=== PATIENT | female | born 1960 | race Caucasian/White ===

== ENCOUNTER 2018-06-14 20:30 | Emergency (ER) | payer OTHER ==
[~2018-06-14] VITALS: Ht 157.5 cm; Wt 81.6 kg
[2018-06-15] MEDS ORDERED: NIFEDIPINE ER30 MG PO (03:43)
== END 2018-06-15 04:00 | disposition home or self-care (01) ==
LOC: ER 20:30
DX: I16.0 Hypertensive urgency (principal); I10 Essential (primary) hypertension

== ENCOUNTER 2021-03-31 14:42 | Inpatient (IN) | payer OTHER ==
[~2021-03-31] VITALS: Ht 157.5 cm; Wt 72.6 kg
[~2021-03-31 14:42] MED LIST: NIFEDIPINE ER30 MG PO
[2021-03-31] MEDS ORDERED: AVAPRO300 MG (14:54)
[2021-03-31] MEDS ORDERED: ALDACTONE25 MG PO (14:54)
[2021-03-31] MEDS ORDERED: ECOTRIN81 MG (14:55)
[2021-03-31] MEDS ORDERED: APRESOLINE 10MG10 MG (14:55)
[2021-03-31] MEDS ORDERED: AMLODIPINE-OLM1 EAC2 (14:55)
[2021-03-31] MEDS ORDERED: CARVEDILOL ER40 MG (14:55)
--- NOTE | 2021-03-31 14:56 | NUR ---
PACIENTE FEMENINA, ALERTA Y ORIENTADA. REFIERE MALESTAR GENERAL DESDE HACE NEY SEMANA. SE MIDE S/V. SE UBICA EN SLA DE ESPERA.
--- NOTE | 2021-03-31 17:16 | NUR ---
SE ORIENTA AL PACIENTE SOBRE EL TX. SE EXTRAEN MUESTRAS DE JOEL BAJO MEDIDAS ASEPTICAS SE ROTULAN Y ENVIAN AL LABORATORIO.
[2021-04-14] MEDS ORDERED: LOSARTAN POTAS100 MG PO (15:07)
[2021-04-14] MEDS ORDERED: HYDRALAZINE HCL50 MG PO (15:08)
[2021-04-14] MEDS ORDERED: ZOCOR20 MG PO (15:10)
== END 2021-04-14 16:49 | disposition home or self-care (01) | DRG 673 ==
LOC: ER 14:42 → MEDI 23:48
PROVIDERS: Radiology Vascular & Interventional Radiology; ADMIT Internal Medicine; ATTEND Internal Medicine
PROC: 06HM33Z Insertion of Infusion Device into Right Femoral Vein, Percutaneous Approach (ICD-10-PCS; 2021-04-01)
PROC: 30233N1 Transfusion of Nonautologous Red Blood Cells into Peripheral Vein, Percutaneous Approach (ICD-10-PCS; 2021-04-02)
PROC: 5A1D70Z Performance of Urinary Filtration, Intermittent, Less than 6 Hours Per Day (ICD-10-PCS; 2021-04-04)
PROC: 02H633Z Insertion of Infusion Device into Right Atrium, Percutaneous Approach (ICD-10-PCS; 2021-04-07)
PROC: 4A033R1 Measurement of Arterial Saturation, Peripheral, Percutaneous Approach (ICD-10-PCS; 2021-04-07)
PROC: 0JH63XZ Insertion of Tunneled Vascular Access Device into Chest Subcutaneous Tissue and Fascia, Percutaneous Approach (ICD-10-PCS; principal; 2021-04-07 17:00)
DX: I13.11 Hypertensive heart and chronic kidney disease without heart failure, with stage 5 chronic kidney disease, or end stage renal disease (principal); N18.6 End stage renal disease; E87.2 Acidosis; T82.41XA Breakdown (mechanical) of vascular dialysis catheter, initial encounter; N17.8 Other acute kidney failure; E87.5 Hyperkalemia; D64.9 Anemia, unspecified; Z20.822 Contact with and (suspected) exposure to COVID-19; D69.6 Thrombocytopenia, unspecified; E53.8 Deficiency of other specified B group vitamins; Z99.2 Dependence on renal dialysis; Y84.1 Kidney dialysis as the cause of abnormal reaction of the patient, or of later complication, without mention of misadventure at the time of the procedure

== ENCOUNTER 2021-09-09 19:51 | Emergency (ER) | payer OTHER ==
[~2021-09-09] VITALS: Ht 165.1 cm; Wt 99.8 kg
[~2021-09-09 19:51] MED LIST changes: +ALDACTONE25 MG PO; +AMLODIPINE-OLM1 EAC2; +APRESOLINE 10MG10 MG; +AVAPRO300 MG; +CARVEDILOL ER40 MG; +ECOTRIN81 MG; +HYDRALAZINE HCL50 MG PO; +LOSARTAN POTAS100 MG PO; +ZOCOR20 MG PO
== END 2021-09-09 21:01 | disposition home or self-care (01) ==
LOC: ER 19:51
DX: R53.81 Other malaise (principal); Z86.79 Personal history of other diseases of the circulatory system